=== PATIENT | female | born 1990 | race Caucasian/White ===

== ENCOUNTER 2020-11-06 15:29 | Outpatient (REF) | payer OTHER, SELFPAY ==
--- NOTE | ~2020-11-06 | XR_ITS ---
EXAMINATION: XR HAND, LEFT CLINICAL INFORMATION: Pain left hand. COMPARISON: None TECHNIQUE: PA, lateral, and oblique views of the left hand. FINDINGS: There is a mildly displaced longitudinal fracture involving the base of proximal phalanx fourth digit with intra-articular extension. No additional fracture seen. There is mild soft tissue swelling. XR/XR hand LT min 3V IMPRESSION: Mildly displaced longitudinal fracture involving the base of proximal phalanx fourth digit with intra-articular extension. Mild soft tissue swelling at the fourth MCP joint.
== END 2020-11-06 15:30 | disposition home or self-care (01) ==
LOC: HO.HMGCX 15:29
PROVIDERS: PCP Internal Medicine; Visit Provider Hospitalist
DX: M79.642 Pain in left hand (principal)
CPT/HCPCS: 73130